=== PATIENT | male | born 1970 | race Caucasian/White ===

== ENCOUNTER 2017-03-03 13:08 | Observation (INO) | payer BC ==
[2017-03-03] VITALS (100 sets, daily range): BP systolic 140; BP diastolic 101; PULSE 84; TEMP 97.9; O2SAT 95–100
[~2017-03-03] VITALS: Ht 172.7 cm; Wt 66.9 kg
[~2017-03-03 13:08] MED LIST: ALDACTONE 25MG25 M1 PO; ALDACTONE50 MG PO; AMOXIL250 M1 PO; ATIVAN 1MG T1 MG/TAB PO; B COMPLEX #11 TAB PO; BUSPAR10 MG PO; CELEBREX50 MG PO; CELEXA40 MG PO; CREON 36000; DESYREL 100MG100 MG PO; FLEXERIL 1010 MG/TAB PO; FOLIC ACID 11 MG/TA1 PO; HCTZ; K-DUR20 MEQ PO; KLOR-CON M2020 MEQ PO; LAMICTAL 25MG T25 MG PO; LIDODERM 5% PATC1 EA TP; LOPRESSOR100 MG PO; MEDROL 4MG DOSPA4 MG PO; MELATONIN1 MG PO; MOTRIN 800800 MG/TAB PO; MULTIPLE VITAMI1 CAP PO; NO HOME MEDICATIONS; NORCO 325 MG-51 TAB PO; NORVASC 5MG5 MG/TAB PO; PAMELOR 10MG10 MG PO; PEPCID AC20 MG PO; PERCOCET 325 MG1 TA2 PO; PHENERGAN 25 TA25 MG PO; PREDNISONE20 MG PO; PRIL40 PO; PRILOSEC 20MG20 MG PO; PRINIVIL2.5 MG PO; RISPERDAL 1M1 MG/TAB PO; ROXICODONE 55 MG/TAB PO; SEROQUEL300 MG PO; SINGULAIR 110 MG/TAB PO; TEGRETOL 2200 MG/TA1 PO; TOPROL-XL50 MG PO; TRAZADONE HYDR100 MG PO; ULTRAM 50MG TAB50 MG PO; VIAGRA 25MG TAB25 MG PO; VIT B COMPLEX; VITAMIN B COMPL1 TA1 PO; VYTORIN 10 MG-41 TAB PO; ZANAFLEX CAPSULE6 MG PO; ZITHROMAX 250M250 MG PO; [UNRECOGNIZED DRUG - OTHER] PO; [UNRECOGNIZED DRUG - OTHER] PO
[2017-03-03 13:49] LABS: BASO % 0.4 % (0.0-2.0); EOS # 0.1 (0.0-0.7); GRAN # 6.2 (1.4-6.5); GRAN % 55.2 % (42.2-75.2); HEMATOCRIT 38.5 % (42.0-52.0); HEMOGLOBIN 13.9 g/dl (13.5-18.0); LYMPH # 3.8 (1.2-3.4); LYMPH % 33.8 % (20.0-51.0); MEAN CELL VOLUME 88 fl (80.0-100.0); MEAN CORPUSCULAR HEMOGLOBIN 32 pg (27.0-31.0); MEAN CORPUSCULAR HGB CONC 36 g/dl (33.0-37.0); MEAN PLATELET VOLUME 8.9 fl (7.4-10.4); MONO # 1.1 (0.1-0.6); MONO % 9.3 % (1.7-9.3); PLATELET COUNT 239 K/mm3 (130-400); WHITE BLOOD COUNT 11.2 K/mm3 (4.8-10.8)
[2017-03-03 14:03] LABS: ADJUSTED CALCIUM 9.5 mg/dL (8.4-10.2); ALANINE AMINOTRANSFERASE 23 U/L (21-72); ALBUMIN 3.6 gm/dL (3.5-5.0); ALKALINE PHOSPHATASE 111 U/L (50-136); ANION GAP 9 mmol/L (7-16); BILIRUBIN,TOTAL 0.6 mg/dL (0.0-1.0); BLOOD UREA NITROGEN 9 mg/dL (9-20); CALCIUM 9.2 mg/dL (8.4-10.2); CARBON DIOXIDE 27 mmol/L (22-30); CHLORIDE 104 mmol/L (98-107); GLUCOSE 71 mg/dL (74-106); SODIUM 139 mmol/L (137-145); TOTAL PROTEIN 6.5 gm/dL (6.4-8.2)
[2017-03-03 14:08] LABS: ACETAMINOPHEN < 10 ug/mL (10-30); POTASSIUM 2.8 mmol/L (3.4-5.0)
[2017-03-03 14:09] LABS: C-REACTIVE PROTEIN 0.5 mg/dL (0.0-0.9); SALICYLATE < 1.0 mg/dL
[2017-03-03 15:01] LABS: AMPHETAMINE URINE NEGATIVE; BARBITURATES URINE NEGATIVE; BENZODIAZEPINES URINE NEGATIVE; BUPRENORPHINE URINE NEGATIVE; METHADONE URINE NEGATIVE; OPIATES URINE NEGATIVE; OXYCODONE URINE NEGATIVE; PHENCYCLIDINE URINE NEGATIVE; PROPOXYPHENE URINE NEGATIVE; THC CANNABINOIDS URINE NEGATIVE
[2017-03-04] VITALS (635 sets, daily range): BP systolic 137–148; BP diastolic 60–98; PULSE 78–97; TEMP 97.8–98.4; O2SAT 87–100
[2017-03-04 05:59] LABS: ADD PATHOLOGY DIFF REVIEW NO
[2017-03-04 06:06] LABS: HEMATOCRIT 39.4 % (42.0-52.0); HEMOGLOBIN 13.5 g/dl (13.5-18.0); MEAN CELL VOLUME 90 fl (80.0-100.0); MEAN CORPUSCULAR HEMOGLOBIN 31 pg (27.0-31.0); MEAN CORPUSCULAR HGB CONC 34 g/dl (33.0-37.0); MEAN PLATELET VOLUME 9.1 fl (7.4-10.4); PLATELET COUNT 231 K/mm3 (130-400); RED BLOOD COUNT 4.36 M/mm3 (4.20-5.60); REDCELL DISTRIBUTION WIDTH-CV 13.5 % (11.5-14.5); WHITE BLOOD COUNT 9.1 K/mm3 (4.8-10.8)
[2017-03-04 06:15] LABS: ADJUSTED CALCIUM 9.2 mg/dL (8.4-10.2); ALBUMIN 3.1 gm/dL (3.5-5.0); CALCIUM 8.5 mg/dL (8.4-10.2); CREATININE, serum 0.71 mg/dL (0.66-1.25); MAGNESIUM 1.8 mg/dL (1.6-2.3); POTASSIUM 3.9 mmol/L (3.4-5.0); TOTAL PROTEIN 5.9 gm/dL (6.4-8.2)
[2017-03-04 06:18] LABS: BAND 1 % (0-10); EOSINOPHIL 4 % (0-4); NEUTROPHILS 49 % (42.0-75.2); PLATELET ESTIMATE NORMAL (NORMAL); TOTAL CELLS COUNTED 100
[2017-03-04] MEDS ORDERED: RISPERDAL2 MG PO (14:42)
[2017-03-04] MEDS ORDERED: NORVASC 5MG5 MG/TAB PO (15:12)
== END 2017-03-04 15:50 | disposition home or self-care (01) ==
LOC: COL.ER 13:08 → ICU 16:20
PROVIDERS: Emergency Medicine; Internal Medicine
DX: F15.10 Other stimulant abuse, uncomplicated (principal); T43.621A Poisoning by amphetamines, accidental (unintentional), initial encounter; G92 Toxic encephalopathy; E44.0 Moderate protein-calorie malnutrition; F31.9 Bipolar disorder, unspecified; R63.4 Abnormal weight loss; I10 Essential (primary) hypertension; F41.1 Generalized anxiety disorder; F17.210 Nicotine dependence, cigarettes, uncomplicated
CPT/HCPCS: 90791-AI; 99239; G0378; J0360; J3360; J3480; J7030

== ENCOUNTER 2017-03-27 19:16 | Emergency (ER) | payer BC ==
[~2017-03-27] VITALS: Ht 177.8 cm; Wt 70.4 kg
[~2017-03-27 19:16] MED LIST changes: +RISPERDAL2 MG PO
[2017-03-27 19:30] VITALS: TEMP 98.6
[2017-03-27] MEDS ORDERED: CELEBREX50 MG PO (19:35)
[2017-03-27 20:26] VITALS: BP 142/96
[2017-03-27 20:51] VITALS: PULSE 85
== END 2017-03-27 20:53 | disposition home or self-care (01) ==
LOC: COL.ER 19:16
DX: G89.29 Other chronic pain (principal); M25.512 Pain in left shoulder; J44.9 Chronic obstructive pulmonary disease, unspecified; I10 Essential (primary) hypertension; F31.9 Bipolar disorder, unspecified

== ENCOUNTER 2017-12-18 23:05 | Emergency (ER) | payer MEDICARE ==
[~2017-12-18] VITALS: Ht 172.7 cm; Wt 84.1 kg
[2017-12-18 23:08] VITALS: BP 142/82; TEMP 97.8
[2017-12-18] MEDS ORDERED: NORCO 325 MG-51 TAB PO (23:44)
[2017-12-18] MEDS ORDERED: DOXYCYCLINE 10100 MG PO (23:44)
[2017-12-18 23:58] VITALS: PULSE 98
== END 2017-12-18 23:58 | disposition home or self-care (01) ==
LOC: COL.ER 23:05
DX: S20.219A Contusion of unspecified front wall of thorax, initial encounter (principal); I10 Essential (primary) hypertension; F31.9 Bipolar disorder, unspecified; F17.210 Nicotine dependence, cigarettes, uncomplicated; Z98.890 Other specified postprocedural states; W22.8XXA Striking against or struck by other objects, initial encounter
CPT/HCPCS: A9284

== ENCOUNTER 2018-02-17 22:44 | Emergency (ER) | payer MEDICARE ==
[~2018-02-17] VITALS: Ht 172.7 cm; Wt 86.4 kg
[~2018-02-17 22:44] MED LIST changes: +DOXYCYCLINE 10100 MG PO
[2018-02-17 23:15] LABS: BASO # 0.1 (0.0-0.2); BASO % 0.4 % (0.0-2.0); EOS # 0.1 (0.0-0.7); EOS % 0.9 % (0-4.0); GRAN # 8.1 (1.4-6.5); GRAN % 62.7 % (42.2-75.2); HEMATOCRIT 48.6 % (42.0-52.0); HEMOGLOBIN 17.1 g/dl (13.5-18.0); LYMPH # 3.4 (1.2-3.4); LYMPH % 26.3 % (20.0-51.0); MEAN CELL VOLUME 92 fl (80.0-100.0); MEAN CORPUSCULAR HEMOGLOBIN 32 pg (27.0-31.0); MEAN CORPUSCULAR HGB CONC 35 g/dl (33.0-37.0); MEAN PLATELET VOLUME 9.1 fl (7.4-10.4); MONO # 1.2 (0.1-0.6); MONO % 9.2 % (1.7-9.3); PLATELET COUNT 272 K/mm3 (130-400); RED BLOOD COUNT 5.29 M/mm3 (4.20-5.60); REDCELL DISTRIBUTION WIDTH-CV 13.4 % (11.5-14.5)
[2018-02-17 23:20] LABS: PROTHROMBIN TIME 11.7 SECONDS (9.7-12.8)
[2018-02-17 23:23] LABS: COLLECTION METHOD CLEAN CATCH
[2018-02-17 23:23] LABS: PARTIAL THROMBOPLASTIN TIME 36.2 SECONDS (26.0-37.0)
[2018-02-17 23:27] LABS: ALANINE AMINOTRANSFERASE 52 U/L (21-72); ALBUMIN 4.1 gm/dL (3.5-5.0); ALKALINE PHOSPHATASE 118 U/L (50-136); ANION GAP 11 mmol/L (7-16); AST,SGOT 34 U/L (15-37); BILIRUBIN,TOTAL 0.4 mg/dL (0.0-1.0); BLOOD UREA NITROGEN 11 mg/dL (9-20); C-REACTIVE PROTEIN 0.7 mg/dL (0.0-0.9); CALCIUM 9.6 mg/dL (8.4-10.2); CARBON DIOXIDE 26 mmol/L (22-30); CHLORIDE 101 mmol/L (98-107); CREATININE, serum 0.95 mg/dL (0.66-1.25); GLUCOSE 148 mg/dL (74-106); LIPASE 854 U/L (23-300); POTASSIUM 3.7 mmol/L (3.4-5.0); SODIUM 138 mmol/L (137-145); TOTAL PROTEIN 7.4 gm/dL (6.4-8.2)
[2018-02-17 23:28] LABS: ALCOHOL(ethanol),MEDICAL < 10 mg/dL
[2018-02-17 23:30] LABS: MUCOUS Present /lpf; PH 5 (5-8); SQUAMOUS EPITHELIAL 0-2 /hpf; URINE APPEARANCE Clear; URINE BACTERIA None Seen /hpf; URINE BILIRUBIN Negative (NEGATIVE); URINE BLOOD Negative (NEGATIVE); URINE COLOR Yellow; URINE GLUCOSE Negative (NEGATIVE); URINE KETONE Negative (NEGATIVE); URINE LEUKOCYTE ESTERASE Negative (NEGATIVE); URINE NITRATE Negative (NEGATIVE); URINE PROTEIN(semi-quant) 1+ (NEGATIVE); URINE RBC 0-2 /hpf
[2018-02-17 23:30] LABS: PHOSPHOROUS 3.6 mg/dL (2.5-4.5)
[2018-02-17 23:38] LABS: TRICYCLIC ANTIDEPRESS URINE NEGATIVE
[2018-02-18] MEDS ORDERED: PROTONIX 40MG T40 MG PO (01:16)
[2018-02-18] MEDS ORDERED: ZOFRAN ODT4 MG PO (01:16)
[2018-02-18] MEDS ORDERED: PERCOCET 325 MG1 TA2 PO (01:16)
[2018-02-18 01:40] VITALS: BP 149/92; PULSE 85; TEMP 97
== END 2018-02-18 01:44 | disposition home or self-care (01) ==
LOC: COL.ER 22:44
PROVIDERS: Emergency Medicine
DX: K85.90 Acute pancreatitis without necrosis or infection, unspecified (principal); F10.20 Alcohol dependence, uncomplicated; F17.210 Nicotine dependence, cigarettes, uncomplicated
CPT/HCPCS: C9113; J1170; J2405; J7030; Q9967